=== PATIENT | female | born 1985 | race Two or more races ===

== ENCOUNTER 2017-07-30 17:12 | Emergency (ER) | payer OTHER ==
[~2017-07-30] VITALS: Ht 167.6 cm; Wt 61.2 kg
--- NOTE | 2017-07-30 17:39 | Emergency Room Report ---
History of Present Illness General Chief Complaint: Upper Extremity Injury Source: Patient Present Illness HPI 32 yo female patient presents to ER complaining of left elbow and wrist pain since Saturday. Reports fell on left elbow and wrist while at work. Reports swelling initially that decreases. Reports pain with movement, unable to extend elbow. Denies loss of sensation. Reports taking Advil for pain, denies taking medication today. Denies hitting head, LOC, dizziness. Denies fever, chest pain, SOB, abdominal pain, vision changes. 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 Depoprovera Reviewed Nursing Documentation: PMH: Agreed; PSxH: Agreed Nursing Documentation-PM Past Medical History: No Stated History Review of Systems All Other Systems: negative except mentioned in HPI Physical Exam Vital Signs Date Time Temp Pulse Resp B/P (MAP) Pulse Ox O2 Delivery O2 Flow Rate FiO2 07/30/17 17:34 99.1 73 17 114/80 99 Room Air 99.1 Sp02 EP Interpretation: reviewed, normal General Appearance: well appearing, no apparent distress, alert, GCS 15, non- toxic Head: normocephalic, atraumatic Eyes: bilateral eye normal inspection, bilateral eye PERRL ENT: hearing grossly normal, normal pharynx, no angioedema, normal voice, uvula midline, moist mucus membranes Neck: full range of motion Respiratory: lungs clear, normal breath sounds, no rhonchi, no respiratory distress, no accessory muscle use, no wheezing, speaking full sentences Cardiovascular #1: regular rate, rhythm, no edema Cardiovascular #2: 2+ radial (R), 2+ radial (L) Musculoskeletal: digits/nails normal, gait/station normal, decreased range of motion - secondary to pain, swelling - left elbow, other - NVI, radial nerve intact, able to make a fist no snuffbox tenderness, no warmth to touch over left elbow, tender - proximal to and over left elbow Neurologic: alert, oriented x3, responsive, motor strength/tone normal, sensory intact Psychiatric: mood/affect normal Skin: no rash Lymphatic: no adenopathy Medical Decision Making PA Attestation Dr. Ortiz is my supervising Physician whom patient management has been discussed with.. Diagnostic Impression: Primary Impression: Elbow fracture, left Additional Impression: Wrist pain ER Course Pt. presents to the ED c/o left elbow and wrist pain. Ddx considered but are not limited to fracture, sprain, strain, contusion. Nontoxic appearing, no warmth to touch, low suspicion for septic joint. No snuffbox tenderness, low suspicion fo scaphoid fracture. Vital signs: are WNL, pt. is afebrile Ordered X-ray and pain medication. ER COURSE An X-ray of the left wrist was ordered, results shows left wrist negative for acute disease per the preliminary reading. An X-ray of the left elbow was ordered, results shows anterior fat pad sign and supracondylar fracture of left elbow per the preliminary reading. Xray reviewed by Dr. Ortiz, agrees with findings. Discussed results with patient. Medication provided in ED. Long arm splint placed for left elbow was provided; was checked afterwards by me showing good alignment and support with distal neurovascular functioning intact. Provided patient with CD of xray results. Provided with referral for ortho specialist. Completed work note for patient, do not use left arm until followup and clearance by primary care provider and/or performance solutions specialist. Followup with HR at job tomorrow to discuss referral to physician and treatment plans. If they do not have physician to followup with, contact performance solutions specialist provided in discharge paperwork. Need followup in 3-5 days. Patient reports understanding and agreement to treatment plan. DISCHARGE: -Rx provided for Tylenol for pain symptoms. At this time pt. is stable for d/c to home. Patient is resting comfortably, in no acute distress, nontoxic appearing, talking without difficulty. Will provide printed patient care instructions, and any necessary prescriptions. Patient instructed to follow with primary care provider in 3 - 5 days and to request further orthopedic follow-up. Care plan and follow up instructions have been discussed with the patient prior to discharge. Patient instructed on RICE method: rest, ice, compression, elevation. Patient instructed to NWB. Take medications as directed. Patient questions asked and answered. Patient reports understanding and agreement to treatment plan. ER precautions given, patient instructed to return to ER immediately for any new or worsening of symptoms. Other X-Ray Diagnostic Results Other X-Ray Diagnostic Results #1: X-Ray ordered: left elbow # of Views/Limited Vs Complete: 2 View Indication: Pain EP Interpretation: Yes Interpretation: no dislocation, other - anterior fat pad sign Impression: Other - supracondylar fracture PA Scribe Text Adam Alvarez PA-C Other X-Ray Diagnostic Results #2: X-Ray ordered: left wrist # of Views/Limited Vs Complete: 3 View Indication: Pain EP Interpretation: Yes PA Xray: Interpretation reviewed, by supervising MD, and agrees with findings. Interpretation: no dislocation, no soft tissue swelling, no fractures Impression: No acute disease PA Scribe Text Adam Alvarez PA-C Last Vital Signs Date Time Temp Pulse Resp B/P (MAP) Pulse Ox O2 Delivery O2 Flow Rate FiO2 07/30/17 17:34 99.1 73 17 114/80 99 Room Air 99.1 Disposition: HOME, SELF-CARE Condition: Stable Scripts Acetaminophen* (TYLENOL EXTRA STRENGTH*) 500 Mg Tablet 500 MG ORAL Q8H PRN for Prn Headache/Temp > 101, #30 TAB 0 Refills Prov: Jeff Alvarez 07/30/17 Patient Instructions: Wrist Pain, [id number], Elbow Fracture Additional Instructions: Patient instructed to follow up with primary care provider and discuss further referral to orthopedics. Patient instructed on RICE method: rest, ice, compression, elevation. Patient instructed to NWB. Take medications as directed. Patient questions asked and answered. ER precautions given, patient instructed to return to ER immediately for any new or worsening of symptoms. Jeff Alvarez Jul 30, 2017 17:39
[2017-07-30] MEDS ORDERED: Acetaminophen 500mg (ES) tab ORAL ONE (18:00)
[2017-07-30] MEDS ORDERED: TYLENOL EXTRA500 MG ORAL (18:54)
[2017-07-30 19:00] VITALS: BP 110/78
--- NOTE | 2017-07-31 10:57 | Diagnostic Imaging Report ---
Indication: Left elbow pain Findings: 3 views of the left elbow were obtained. No acute fractures, malalignment, erosions or periostitis are identified. Soft tissues are unremarkable. Impression: No acute injury
--- NOTE | 2017-07-31 10:57 | Diagnostic Imaging Report ---
Indication: Pain left wrist pain Findings: 3 views of the left wrist were obtained. No acute fractures, malalignment, erosions or periostitis are identified. Soft tissues are unremarkable. Impression: No acute findings.
== END 2017-07-30 19:00 | disposition home or self-care (01) ==
LOC: EMR 18:04
DX: S42.412A Displaced simple supracondylar fracture without intercondylar fracture of left humerus, initial encounter for closed fracture (principal); M25.532 Pain in left wrist; W18.30XA Fall on same level, unspecified, initial encounter; Y92.511 Restaurant or cafe as the place of occurrence of the external cause; Y99.0 Civilian activity done for income or pay
CPT/HCPCS: 29105; 99284